=== PATIENT | male | born 1965 | race Caucasian/White ===

== ENCOUNTER 2016-03-12 08:22 | Emergency (ER) | payer OTHER ==
[~2016-03-12] VITALS: Ht 177.8 cm; Wt 91.0 kg
[~2016-03-12 08:22] MED LIST: GLUC1000 PO
[2016-03-12 08:27] VITALS: BP 145/93; PULSE 86; RESP 16; TEMP 98.1; O2SAT 99
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
[2016-03-12] MEDS ORDERED: traMADol/ACETAMINOPHEN 37.5/325 1 TAB PO ONE (09:15)
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
[2016-03-12] MEDS ORDERED: CYCL1TAB29 PO (09:59)
[2016-03-12] MEDS ORDERED: MOTR200T4 PO (09:59)
== END 2016-03-12 10:08 | disposition home or self-care (01) ==
LOC: PHED 08:22
DX: S39.012A Strain of muscle, fascia and tendon of lower back, initial encounter (principal); S20.219A Contusion of unspecified front wall of thorax, initial encounter; M54.2 Cervicalgia; E11.9 Type 2 diabetes mellitus without complications; V43.52XA Car driver injured in collision with other type car in traffic accident, initial encounter; Y99.8 Other external cause status
CPT/HCPCS: 71010; 72110; 99284